=== PATIENT | male | born 1965 | race Caucasian/White ===

== ENCOUNTER → 2024-08-07 10:21 | Outpatient (REF) | payer BC, SELFPAY | LOC: RAD 10:21 | PROVIDERS: ATTENDING PHYSICIAN Physician Assistant Medical | DX: M54.50 Low back pain, unspecified (principal) | CPT/HCPCS: 72110 ==

== ENCOUNTER → 2024-08-16 12:25 | Outpatient (REF) | payer BC, SELFPAY | LOC: PAVMRI 12:25 | PROVIDERS: ATTENDING PHYSICIAN Physician Assistant Medical | DX: M54.50 Low back pain, unspecified (principal) | CPT/HCPCS: 72148 ==

== ENCOUNTER → 2024-08-25 06:51 | Outpatient (REF) | payer BC, SELFPAY | LOC: RAD 06:51 | PROVIDERS: ATTENDING PHYSICIAN Physician Assistant Medical | DX: R79.89 Other specified abnormal findings of blood chemistry (principal) | CPT/HCPCS: 76700 ==

== ENCOUNTER → 2025-02-17 07:18 | Outpatient (REF) | payer BC, SELFPAY | LOC: HWRCS 07:18 | PROVIDERS: ATTENDING PHYSICIAN Nuclear Medicine Nuclear Cardiology; FAMILY PHYSICIAN Family Medicine | DX: Z01.810 Encounter for preprocedural cardiovascular examination (principal); R94.31 Abnormal electrocardiogram [ECG] [EKG]; R55 Syncope and collapse; E78.2 Mixed hyperlipidemia; I10 Essential (primary) hypertension | CPT/HCPCS: 93306 ==

== ENCOUNTER → 2025-06-03 11:24 | Outpatient (REF) | payer BC, SELFPAY | LOC: HWRCS 11:24 | PROVIDERS: ATTENDING PHYSICIAN Nuclear Medicine Nuclear Cardiology; FAMILY PHYSICIAN Family Medicine | DX: Z01.810 Encounter for preprocedural cardiovascular examination (principal); R94.31 Abnormal electrocardiogram [ECG] [EKG]; R55 Syncope and collapse; E78.2 Mixed hyperlipidemia; I10 Essential (primary) hypertension | CPT/HCPCS: 78452; 93017; A9500; J2785 ==